=== PATIENT | female | born 1965 | race African-American/Black ===

== ENCOUNTER 2021-05-27 21:44 | Emergency (ER) | payer OTHER ==
[2021-05-27] MEDS ORDERED: NA CHLORIDE 0.9% 1,000 ML IV ONE (21:45)
[2021-05-27] MEDS ORDERED: EPINEPHrine 1 MG/10 ML SYR IV ONE (21:45)
[2021-05-27] MEDS ORDERED: ETOMIDATE 20 MG/10 ML VIAL IV ONE (21:45)
[2021-05-27] MEDS ORDERED: SUCCINYLCHOLINE 20 MG/ML (10 ML) IV ONE (21:45)
[2021-05-27] MEDS ORDERED: RSI MEDICATION KIT IV ONE (21:46)
[2021-05-27 22:12] LABS: Absolute Lymphocytes (CBC) 5.9 K/uL (0.7-4.9); Basophils % 0.3 % (0-1.3); Hematocrit 33.3 % (36.0-45.0); MPV 7.4 fL (7.6-11.3); RBC Red Blood Cell Count 3.76 M/uL (3.86-4.86)
[2021-05-27 22:16] LABS: Protime INR 1.15
[2021-05-27 22:32] LABS: Albumin 2.6 g/dL (3.4-5.0); Bilirubin Direct 0.1 mg/dL (0-0.2); Bilirubin Total 0.4 mg/dL (0.2-1.0); Potassium 4.7 mmol/L (3.5-5.1); Protein, Total 9.3 g/dL (6.4-8.2)
--- NOTE | 2021-05-27 22:48 | ER ---
Nurse's Notes [facility] Name: Hannah Diego Age: 55 yrs Sex: Female : 1965 Arrival Date: 05/27/2021 Time: 21:46 Bed 3 Private MD: Diagnosis: Severe respiratory distress. Sepsis. Cardiorespiratory arrest Presentation: 05/27 21:50 Chief complaint: Chief complaint: EMS states: Came from [facility]. They tw5 stated " She had been fine all day long according to [facility] but about an hour ago she started having respiratory issues, and it was called. 21:50 Method Of Arrival: EMS: [facility] tw5 21:50 Care prior to arrival: None. non rebreather. tw5 21:50 Acuity: HECTOR 1 tw5 22:00 Compressions began at 22:00. tw5 Historical: - Home Meds: 22:50 SEE ADMISSION RECORD [Active]; tw Screenin:50 Abuse screen: Unable to obtain. Nutritional screening: Unable to obtain . Tuberculosis tw5 screening: Unable to obtain. Assessment: 21:50 General: ambu bag. tw5 21:50 General: rapid response Dr. Gates at the bedside. Jaw Thrust, towel placed under patients tw5 shoulders. . General: 7.5 tube. Etomidate 10 mg . Cardiovascular:. 21:50 General: succ going in 100 mg . tw5 21:50 General: 37 o2, 83 heart 111/83, 20 resp. tw5 21:54 General: bougie used . tw5 21:58 General: 100 suc in. tw5 22:00 General: CPR began. tw5 22:00 General: aystole . tw5 22:00 CPR assessment: unresponsive, no respiratory effort, Ambu ventilation. Cardiac rhythm tw5 is bradycardia. 22:03 General: epi . tw5 22:04 General: pulse check. tw5 22:05 General: epi. tw5 22:06 General: bi carb. tw5 22:07 General: epi. tw5 22:08 General: pulse check. tw5 22:09 General: cpr resumed. tw5 22:09 General: epi. tw5 22:09 General: Efra Mckenna (CPR) , Akin SALAZAR tech, Norman KAUR Tech, Astrid RN, Hilaria RN, tw5 Adina RN (Primary Nurse), Dr. Kody MCCAULEY (Lead on CODE), Juan Vásquez RN Charge, [facility] (CPR). 22:11 General: epi. tw5 22:13 General: TIME OF 2212. tw5 22:13 Cardiac rhythm is asystole. kc4 22:34 General: [facility] called- Number [id number]. . tw5 22:34 General: [facility] called regarding eye donation- stated patient is not a tw5 candidate for donation. 05/28 01:22 General: [facility] at [facility] notified of pt condition. [facility] has been unsuccessful df1 contacting family since pt was transported to ER.. 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 Vital Signs: 05/27 21:50 BP 111 / 83; Pulse 83 MON; Resp 20 A; Temp 101.4(R); Pulse Ox 37% on 15% BVM; Weight tw5 129.27 kg (R); Height 5 ft. 6 in. (167.64 cm); 21:50 Body Mass Index 46.00 (129.27 kg, 167.64 cm) tw5 21:50 unable to obtain pain score tw5 ED Course: 21:46 Patient arrived in ED. cf2 21:50 Adina Khalil is Primary Nurse. tw5 21:50 Patient has correct armband on for positive identification. Placed in gown. tw5 21:54 Intubation: 7.5 Fr. ETT placed orally. Performed by Wolfgang Gates MD Successful on third tw5 attempt. Placement verified by CO2 detector w/ + color change. 21:54 Maintain EMS IV. Dressing intact. Good blood return noted. Site clean \\T\\ dry. Gauge \\T\\ tw 5 site: 20 RAC. 21:54 Inserted saline lock: 20 gauge in left antecubital area, using aseptic technique. tw5 22:17 Wolfgang Gates MD is Attending Physician. pkl 22:46 Wolfgang Gates MD is Pronouncing Provider. pkl 22:49 Triage completed. tw5 Administered Medications: 21:50 Drug: Succinylcholine 100 mg Route: IVP; Site: left antecubital; tw5 23:26 Follow up: Response: No change in condition tw5 21:50 Drug: Etomidate 10 mg Route: IVP; Site: left antecubital; tw5 23:12 Follow up: given prior to succinylcholine tw5 21:58 Drug: Succinylcholine 100 mg Route: IVP; Site: right antecubital; tw5 23:26 Follow up: Response: No change in condition tw5 22:03 Drug: EPINEPHrine 0.1mg/mL 1:10,000 1 mg Route: IVP; Site: right antecubital; tw5 23:26 Follow up: Response: No change in condition tw5 22:05 Drug: EPINEPHrine 0.1mg/mL 1:10,000 1 mg Route: IVP; Site: right antecubital; tw5 23:26 Follow up: Response: No change in condition tw5 22:06 Drug: Sodium Bicarbonate 1 amp Route: IVP; Site: right antecubital; tw5 23:25 Follow up: Response: No change in condition tw5 22:07 Drug: EPINEPHrine 0.1mg/mL 1:10,000 1 mg Route: IVP; Site: right antecubital; tw5 23:26 Follow up: Response: No change in condition 5 22:07 Drug: NS 0.9% 1000 ml Route: IV; Rate: 1 bolus; Site: right antecubital; tw5 23:25 Follow up: Response: No change in condition; IV Status: Order to discontinue infusion tw5 22:09 Drug: EPINEPHrine 0.1mg/mL 1:10,000 1 mg Route: IVP; Site: right antecubital; tw5 23:25 Follow up: Response: No change in condition tw5 22:11 Drug: EPINEPHrine 0.1mg/mL 1:10,000 1 mg Route: IVP; Site: right antecubital; tw5 23:25 Follow up: Response: No change in condition tw5 Intake: Outcome: 22:13 Outcome Patient tw5 22:13 Patient : Time of 22:13 Pronounced by Wolfgang Gates MD tw5 22:13 Condition: 05/28 01:52 Patient left the ED. tw5 Signatures: Wolfgang Gates MD MD pkl Munoz, Edgar, RN RN em MaurerGeovany kaur cf2 Hilaria Freeman kc4 Astrid Field df1 Adina Khalil tw5 Corrections: (The following items were deleted from the chart) 05/27 21:53 21:50 General: 7.5 tube. Etomidate 100 mg . tw 22:13 22:09 General: Efra Tech, Akin RT tech, Norman leaf stamper, Astrid RN, Hilaria RN, [facility] Adina HOWARD, Dr. Kody MCCAULEY, Juan Vásquez RN Charge. . 22:42 21:50 Chief complaint: 22:49 22:23 Compressions began at 22:00. kc4 23:08 21:58 Succinylcholine 100 mg IVP in left antecubital tw5 23:08 22:03 EPINEPHrine 0.1mg/mL 1:10,000 1 mg IVP in left antecubital tw5 23:08 21:58 Succinylcholine 100 mg IVP in right antecubital [facility]
--- NOTE | 2021-05-27 22:48 | EDPHYS ---
Physician Documentation [facility] Name: Hannah Diego Age: 55 yrs Sex: Female : 1965 Arrival Date: 05/27/2021 Time: 21:46 Bed 3 Private MD: ED Physician Wolfgang Gates HPI: 05/27 22:19 This 55 yrs old Black Female presents to ER via Unassigned with complaints of pkl Respiratory Distress. 22:19 The patient has shortness of breath at rest. Onset: The symptoms/episode began/occurred pkl just prior to arrival, Patient brought in by EMS from shelter in severe respiratory distress. O2 sat around 30% on non-re breather. Temp 101.4 ( rectally ). Historical: - Home Meds: 22:50 SEE ADMISSION RECORD [Active]; tw5 ROS: 22:37 Eyes: Negative for injury, pain, redness, and discharge, ENT: Negative for injury, pkl pain, and discharge, Neck: Negative for injury, pain, and swelling, Cardiovascular: Negative for chest pain, palpitations, and edema. 22:37 Respiratory: Positive for shortness of breath, at rest. 22:37 Abdomen/GI: Negative for abdominal pain, nausea, vomiting, and diarrhea. 22:37 Back: Negative for pain at rest. 22:37 : Negative for urinary symptoms. 22:37 MS/extremity: Negative for acute changes. 22:37 Skin: Negative for rash. 22:37 Neuro: Positive for altered mental status. Exam: 22:37 Eyes: Pupils equal round and reactive to light, extra-ocular motions intact. Lids and pkl lashes normal. Conjunctiva and sclera are non-icteric and not injected. Cornea within normal limits. Periorbital areas with no swelling, redness, or edema. 22:37 Head/face: Noted is swelling, that is severe, of the right temporal region noted. 22:37 ENT: 22:37 Neck: Previous tracheostomy incision noted. 22:37 Chest/axilla: Exam negative for acute changes. 22:37 Cardiovascular: Rate: normal, Rhythm: regular. 22:37 Respiratory: severe repiratory distress is noted, Respirations: labored breathing, Breath sounds: decreased breath sounds, that are severe. 22:37 Abdomen/GI: Bowel sounds: normal, Palpation: abdomen is soft and non-tender, in all quadrants. 22:37 Back: Exam negative for acute changes. 22:37 : Exam negative for acute changes. 22:37 Musculoskeletal/extremity: Exam is negative for acute changes. 22:37 Skin: Exam negative for rash. 22:37 Neuro: Mentation: responsive to voice able to follow commands, unable to follow commands, Cranial nerves: unable to test, the patient is comatose, Motor: unable to test, the patient is comatose. Vital Signs: 21:50 BP 111 / 83; Pulse 83 MON; Resp 20 A; Temp 101.4(R); Pulse Ox 37% on 15% BVM; Weight tw5 129.27 kg (R); Height 5 ft. 6 in. (167.64 cm); 21:50 Body Mass Index 46.00 (129.27 kg, 167.64 cm) tw5 21:50 unable to obtain pain score tw5 Procedures: 22:37 CPR: See CPR flow sheet. Initial patient assessment: no respiratory effort. pkl MDM: 22:18 Patient medically screened. pkl 22:37 Data reviewed: vital signs, nurses notes. pkl 11 22:08 Order name: Lactate; Complete Time: 22:48 EDMS 1106 22:08 Order name: Procalcitonin; Complete Time: 00:37 EDMS 1106 22:08 Order name: Basic Metabolic Panel; Complete Time: 22:48 EDMS 1106 22:08 Order name: Liver (Hepatic) Function; Complete Time: 22:48 EDMS 1106 22:08 Order name: CBC with Automated Diff; Complete Time: 00:37 EDMS 1106 22:08 Order name: Protime (+INR); Complete Time: 22:48 EDMS 1106 22:21 Order name: Manual Differential; Complete Time: 00:37 EDMS Administered Medications: 21:50 Drug: Succinylcholine 100 mg Route: IVP; Site: left antecubital; tw5 23:26 Follow up: Response: No change in condition tw5 21:50 Drug: Etomidate 10 mg Route: IVP; Site: left antecubital; tw5 23:12 Follow up: given prior to succinylcholine tw5 21:58 Drug: Succinylcholine 100 mg Route: IVP; Site: right antecubital; tw5 23:26 Follow up: Response: No change in condition tw5 22:03 Drug: EPINEPHrine 0.1mg/mL 1:10,000 1 mg Route: IVP; Site: right antecubital; 5 23:26 Follow up: Response: No change in condition tw5 22:05 Drug: EPINEPHrine 0.1mg/mL 1:10,000 1 mg Route: IVP; Site: right antecubital; 5 23:26 Follow up: Response: No change in condition tw5 22:06 Drug: Sodium Bicarbonate 1 amp Route: IVP; Site: right antecubital; tw5 23:25 Follow up: Response: No change in condition 5 22:07 Drug: EPINEPHrine 0.1mg/mL 1:10,000 1 mg Route: IVP; Site: right antecubital; 5 23:26 Follow up: Response: No change in condition 5 22:07 Drug: NS 0.9% 1000 ml Route: IV; Rate: 1 bolus; Site: right antecubital; 23:25 Follow up: Response: No change in condition; IV Status: Order to discontinue infusion 5 22:09 Drug: EPINEPHrine 0.1mg/mL 1:10,000 1 mg Route: IVP; Site: right antecubital; tw5 23:25 Follow up: Response: No change in condition tw5 22:11 Drug: EPINEPHrine 0.1mg/mL 1:10,000 1 mg Route: IVP; Site: right antecubital; 5 23:25 Follow up: Response: No change in condition Disposition: 22:37 . pkl Disposition Summary: 05/27/21 22:48 Patient Location: [facility] pkl Pronouncing Physician: Wolfgang Gates pkliborio Time of : 22:13 05/27/2021 pkl Diagnosis - Severe respiratory distress. Sepsis. Cardiorespiratory arrest pkl Signatures: Dispatcher [employer] EDWolfgang Ayoub MD MD pkl Adina Khalil
[2021-05-27 23:04] LABS: Blood Morphology Comment NOTED (NOT SEEN); Platelet Estimate ADEQ
[2021-05-27 23:05] LABS: Hypochromasia 1+; Polychromasia 1+
[2021-05-27 23:06] LABS: Ovalocytes 1+
[2021-05-28 01:22] VITALS: BP 111/83; TEMP 101.4; O2SAT 37
--- OUTSIDE RECORDS SUMMARY | 2021-06-03 14:49 | XMS REPORT | Continuity of Care Document ---
:1965 Author Organization [facility] t Address [address] [place] [address] Care Team Providers Name Role Phone Pcp, Patient Does Not Have A Primary Care Physician [phone] Doctor Unassigned, Name Attending Clinician Unavailable Fauzia Osorio Attending Clinician Unavailable Stone Petty Attending Clinician Stone NOLEN Attending Clinician Unavailable Referred Admitting Clinician Unavailable Fauzia Osorio Admitting Clinician Unavailable Physician, Primary or Family Admitting Clinician Unavailabl e Payers Payer Name Policy Type Policy Number Effective Date Expiration Date S ource Problems Condition Condition Condition Status Onset Resolution Last Treating Co mments Source Name Details Category Date Date Treatment Clinician Date Morbid Morbid Disease Active 2015-07 [facility] obesity obesity 1-22 [place] mass index 00 Me dical of 50 or of 50 or [place] higher higher Morbid Morbid Disease Active 2015-07 [facility] obesity obesity 1-22 [place] mass index 00 Me dical of of [place] 40.0-49.9 40.0-49.9 Allergies, Adverse Reactions, Alerts Allergy Allergy Status Severity Reaction(s) Onset Inactive Treating Comm ents Source Name Type Date Date Clinician No Known DA Active U 2020-07 [facility] No Known DA Active U 2020-1 [facility] All[facility]ie 0-08 [place] 00:[facility]: d 00 [facility] No Known DA Active U 2020-0 [facility] Allergie 9-20 Clear s 00:00: Amin 00 [facility] No Known DA Active U 2020- [facility] Allergie 9-20 Clear s 00:00: Amin 00 [facility] NO KNOWN Drug Active Univers ALLERGIE Class ity of S [facility] Social History Social Habit Start Date Stop Date Quantity Comments Source Exposure to Not sure [facility] SARS-CoV-2 (event) [facility] Sex Assigned At [birth year] [facility] 00:00:00 00:00:00 [facility] Smoking Status Start Date Stop Date Source Unknown if ever smoked [facility] Medications Ordered Filled Start Stop Current Ordering Indication Dosage Frequency Signature Comments Components Source Medication Medication Date Date Medication? Clinician (SIG) Name Name lidocaine 2020- No 10mL 10 mL, Unive rs 2% 04-01 Infiltrati ity of (XYLOCAINE) 00:15: 00:15 on, ONCE, [place] 20 mg/mL (2 00 :00 1 dose, Medic al %) Fri [place] injection 03/31/21 at 10 mL 1914, RAFFY oxymetazoli 2020- No 1{spray 1 [place], Univers ne 04-01 } Nasal, ity of (OXYMETAZOL 00:15[place] 00 :00 dose, Fri Medica l 0.05 % 03/31/21 at Branch nasal spray 1914, RAFFY [address] [place] lidocaine 2020- No 10mL 10 mL, Unive rs 2% 04-01 Infiltrati ity of (XYLOCAINE) 00:15: 00:15 on, ONCE, [place] 20 mg/mL (2 00 :00 1 dose, Medic al %) Fri [place] injection 03/31/21 at 10 mL 1914, RAFFY oxymetazoli 2020- No 1{spray 1 [place], Univers ne 04-01 } Nasal, ity of (OXYMETAZOL 00:15: 00:15 [place] 00 :00 dose, Fri Medica l 0.05 % 03/31/21 at Branch nasal spray 1915, RAFFY [address] [place] acetaminoph 2016- Yes 1{tbl} Take 1 [place] en-codeine 8-19 tablet by ity of (TYLENOL-CO 00:00: mouth [place] DEINE #3) 00 every 6 Medical 300-30 mg (six) [place] tablet hours as needed for Pain (scale 4-6) (for cough). acetaminoph Yes 1{tbl} Take 1 [place] en-codeine 8-19 tablet by ity of (TYLENOL-CO 00:00: mouth [place] DEINE #3) 00 every 6 Medical 300-30 mg (six) [place] tablet hours as needed for Pain (scale 4-6) (for cough). acetaminoph Yes 1{tbl} Take 1 [place] en-codeine 8-19 tablet by ity of (TYLENOL-CO 00:00: mouth [place] DEINE #3) 00 every 6 Medical 300-30 mg (six) Branch tablet hours as needed for Pain (scale 4-6) (for cough). Vital Signs Vital Name Observation Time Observation Value Comments Source Systolic blood 2021-04-01 04:00:00 168 mm[Hg] Univer sity pressure [facility] Diastolic blood 2021-04-01 04:00:00 84 mm[Hg] Unive [facility] Heart rate 2021-04-01 04:00:00 95 /min [facility] Respiratory rate 2021-04-01 04:00:00 18 /min [facility] Oxygen saturation in 2021-04-01 04:00:00 94 /min [facility] Arterial blood by [facility] Pulse oximetry [place] Body temperature 2021-04-01 00:30:00 36.67 Damari [facility] Body weight 2021-03-31 21:06:00 81.647 kg [facility] BMI 2021-03-31 21:06:00 29.05 kg/m2 [facility] Procedures Procedure Date / Time Performed Performing Clinician Sourc e EXTERNAL PROVIDER 2021-05-05 05:01:00 Doctor Unassigned, No Univ [facility] RECORDS Name [facility] [id number] 2021-04-28 00:00:00 PRIJO [facility] CT SOFT TISSUE NECK 2021-04-01 00:32:59 Gayle Nolen [facility] WO CONTRAST [facility] CT HEAD WO CONTRAST 2021-04-01 00:32:40 Gayle Nolen [facility] Encounters Start End Encounter Admission Attending Care Care Encounter Source Date/Time Date/Time Type Type Clinicians Facility Department ID 2021-04-25 Inpatient [facility] JOHN [id number] [facility] 18:31:00 [id number] [facility] 2021-04-10 Inpatient [facility]N JOHN [id number] [facility] 09:55:00 [id number] [facility] 2021-05-05 2021-05-05 Orders Doctor DAMASO [id number] Univers 00:00:00 00:00:00 Only Unassigned, [place] 350.1.13.[address] [place] [facility] [id number] Michael as [phone] [address] 2021-04-25 2021-05-03 Inpatient EM Jo, [facility] [id number] [facility] 21:47:00 18:53:00 Kendra 89 [facility] 2021-04-25 2021-04-25 Outpatient Osorio, HCACL LABO [id number] [facility] 23:59:00 23:59:00 Kendra 27 [facility] 2021-04-25 2021-04-25 Outpatient Osorio, [facility] LABO [id number] [facility] 23:59:00 23:59:00 Kendra [id number] [facility] 2021-04-10 2021-04-17 Inpatient EM Jo, [facility] [id number] [facility] 12:49:00 18:51:00 Kendra 81 [facility] 2021-04-11 2021-04-11 Outpatient Osorio, HC[facility]L LABO [id number] [facility] 10:47:00 10:47:00 Kendra [id number] [facility] 2021-03-31 2021-03-31 Emergency RAUL Nolen [id number] [facility] 16:08:00 23:57:00 Gayle [facility] 350.1.13.10 Esau [id number] [facility] [phone] [address] ([facility]) 2021-03-31 2021-03-31 Emergency X RAUL NOLEN ERT [id number] Univers 16:08:00 16:08:00 AZARANNA chandra [facility] Results Test Description Test Time Test Comments Results Result Comments Source COVID 19 Asymptomatic IH AG 2021-05-03 15:14:00 Test Item Value Reference Range Interpretation Comme nts COVID 19 Asymptomatic IH AG NEGATIVE NEGATIVE Negative results should be treated (test code = COVNONPUIAG) as presumptive and ifinconsistent with clinical s igns and symptoms, or necessaryfor pa tient management, should be teste d with an alternativemole cular assay. Negative results do not preclude RQCB-FhJ-8ybeut tion and should not be used as the sole basis forpatient management deci sions. Negative results should beconsidered in the context of a pa tient's recent exposures,histo ry, presence of clinical signs and symptoms consistentwith COVID-19. [id number] 11:19:00 Test Item Value Reference Range Interpretation Comments GLUBED (test code = GLUBED) 105 mg/dL 70-110 N [id number] 07:44:00 Test Item Value Reference Range Interpretation Comments GLUBED (test code = GLUBED) 107 mg/dL 70-110 N [id number] 00:55:00 Test Item Value Reference Range Interpretation Comments GLUBED (test code = GLUBED) 98 mg/dL 70-110 N [id number] 18:29:00 Test Item Value Reference Range Interpretation Comments GLUBED (test code = GLUBED) 65 mg/dL 70-110 L - XR CHEST 1 [id number] 06:58:00 [facility] : 1965 Sex: F FAX: Kendra Osorio MD [phone] [place]: St: ADM FAX: Zen Baldwin MD [phone] Name: ELENA DIEGO [facility] [place] : 1965 Age/S: 55/F [address] [facility] Unit #: [id number] Loc: [address] Phys: [place] [id number] Acct: [id number] Dis Date: Status: ADM IN PHONE #: [phone] Exam Date: 05/02/2021 0652 FAX #: [phone] Reason: Followup. Self-dislodged trach tube. EXAMS: CPT CODE: [id number] XR CHEST 1 V [id number] EXAM:- XR CHEST 1 V Location code:C3 HISTORY: Followup. Self-dislodged trach tube. COMPARISON: 04/25/2021 FINDINGS: Single AP view of thechest is provided. Tracheostomy cannula has been removed. Heart size and vascularity arewithin normal limits. Basilar opacities have diminished. There is no effusion or pneumothorax. IMPRESSION: 1. Basilar opacities have diminished. E lectronically Signed by Jagdish Salinas on 05/02/2021 at 0658 Reported and signed by: Miguel A Salinas M.D. CC: Kendra Osorio MD; Zen Hall MD Technologist: MAURO TAYLOR [facility] Date/Time/By: 05/02/2021 (0658) : By: [email or web address] PAGE 1 Signed Report FAX: Kendra Osorio MD [place]: St: ADM FAX: Y Zen Hall MD [phone] Name: ELENA DIEGO [facility] : 1965 Age/S: 55/F [address] [facility] [place] Unit #: [id number] Loc: [address] [place]: [place] [id number] Acct: [id number] Dis Date: atus: ADM IN PHONE #: [phone] Exam Date: FAX #: [phone] Reason: Followup. Self-dislodged trach tube. EXAMS: CPT CODE: [id number] XR CHEST 1 V [id number] <Continued> Orig Print D/T: S: 05/02/2021 (0701) PAGE 2 Signed [id number] 05:59:00 Test Item Value Reference Range Interpretation Comments GLUBED (test code = GLUBED) 114 mg/dL 70-110 H [id number] 01:14:00 Test Item Value Reference Range Interpretation Comments GLUBED (test code = GLUBED) 101 mg/dL 70-110 N [id number] 20:20:00 Test Item Value Reference Range Interpretation Comments GLUBED (test code = GLUBED) 103 mg/dL 70-110 N [id number] 16:19:00 Test Item Value Reference Range Interpretation Comments GLUBED (test code = GLUBED) 105 mg/dL 70-110 N [id number] 11:57:00 Test Item Value Reference Range Interpretation Comments GLUBED (test code = GLUBED) 115 mg/dL 70-110 H CBC W/AUTO [id number] 09:11:00 Test Item Value Reference Range Interpretation Comments WHITE BLOOD CELL (test code = 5.5 K/mm3 4.5-11.0 N WBC) RED BLOOD CELL (test code = 3.36 M/mm3 3.80-5.20 L RBC) HEMOGLOBIN (test code = HGB) 9.8 gm/dL 12.0-16.0 L HEMATOCRIT (test code = HCT) 31.3 % 36.0-48.0 L MEAN CELL VOLUME (test code = 93.2 UM3 82.0-99.0 N MCV) MEAN CELL HGB (test code = MCH) 29.2 UUG 25.5-32.5 N MEAN CELL HGB CONCETRATION 31.3 gm/dL 29.0-35.5 N (test code = MCHC) RED CELL DISTRIBUTION WIDTH 13.0 % 11.5-15.0 N (test code = RDW) RED CELL DISTRIBUTION WIDTH SD 44.2 fL 34.8-50.2 N (test code = RDW-SD) PLATELET COUNT (test code = 200 K/mm3 150-400 N PLT) MEAN PLATELET VOLUME (test code 9.1 fl 7.4-10.4 N = MPV) NEUTROPHIL % (test code = NT%) 42.1 % 49.0-76.0 L IMMATURE GRANULOCYTE % (test 0.7 % 0.0-0.4 H code = IG%) LYMPHOCYTE % (test code = LY%) 42.8 % 23.0-38.0 H MONOCYTE % (test code = MO%) 10.8 % 1.0-10.0 H EOSINOPHIL % (test code = EO%) 3.2 % 1.0-5.0 N BASOPHIL % (test code = BA%) 0.4 % 0.0-1.0 N NUCLEATED RBC % (test code = 0.0 % 0.0-0.1 N NRBC%) NEUTROPHIL # (test code = NT#) 2.3 K/mm3 2.4-6.3 L IMMATURE GRANULOCYTE # (test 0.04 x10 3/uL 0.00-0.07 N code = IG#) LYMPHOCYTE # (test code = LY#) 2.4 K/mm3 1.2-4.0 N MONOCYTE # (test code = MO#) 0.6 K/mm3 0.0-0.6 N EOSINOPHIL # (test code = EO#) 0.2 K/MM3 0.0-0.7 N BASOPHIL # (test code = BA#) 0.0 K/mm3 0.0-0.2 N NUCLEATED RBC # (test code = 0.00 X10 3uL 0.00-0.01 N NRBC#) BASIC METABOLIC [id number] 08:20:00 Test Item Value Reference Range Interpretation Comments SODIUM (test code = NA) 140 mmol/l 134.0-147.0 N POTASSIUM (test code = K) 3.9 mmol/L 3.6-5.2 N CHLORIDE (test code = CL) 105 mmol/l 98.0-107.0 N CARBON DIOXIDE (test code = CO2) 27.7 mmol/l 21.0-33.0 N ANION GAP (test code = GAP) 11.2 0-20 N GLUCOSE (test code = GLU) 114 mg/dl 70.0-110.0 H BLOOD UREA NITROGEN (test code = 20 mg/dl 7.0-18.0 H BUN) CREATININE (test code = CREAT) 1.55 mg/dL 0.60-1.30 H GFR NON BLACK (test code = 37 mL/min 90-95 L GFRNONBLACK) GFR BLACK (test code = GFRBLACK) 44 mL/min 109-115 L CALCIUM (test code = CA) 9.3 mg/dl 8.0-10.5 N [id number] 06:15:00 Test Item Value Reference Range Interpretation Comments GLUBED (test code = GLUBED) 100 mg/dL 70-110 N [id number] 03:14:00 Test Item Value Reference Range Interpretation Comments GLUBED (test code = GLUBED) 85 mg/dL 70-110 N [id number] 23:18:00 Test Item Value Reference Range Interpretation Comments GLUBED (test code = GLUBED) 98 mg/dL 70-110 N [id number] 20:51:00 Test Item Value Reference Range Interpretation Comments GLUBED (test code = GLUBED) 99 mg/dL 70-110 N [id number] 16:27:00 Test Item Value Reference Range Interpretation Comments GLUBED (test code = GLUBED) 109 mg/dL 70-110 N [id number] 12:29:00 Test Item Value Reference Range Interpretation Comments GLUBED (test code = GLUBED) 102 mg/dL 70-110 N [id number] 05:33:00 Test Item Value Reference Range Interpretation Comments GLUBED (test code = GLUBED) 96 mg/dL 70-110 N [id number] 00:15:00 Test Item Value Reference Range Interpretation Comments GLUBED (test code = GLUBED) 80 mg/dL 70-110 N [id number] 18:15:00 Test Item Value Reference Range Interpretation Comments GLUBED (test code = GLUBED) 77 mg/dL 70-110 N [id number] 11:53:00 Test Item Value Reference Range Interpretation Comments GLUBED (test code = GLUBED) 100 mg/dL 70-110 N [id number] 05:36:00 Test Item Value Reference Range Interpretation Comments GLUBED (test code = GLUBED) 96 mg/dL 70-110 N [id number] 20:10:00 Test Item Value Reference Range Interpretation Comments GLUBED (test code = GLUBED) 81 mg/dL 70-110 N [id number] 17:55:00 Test Item Value Reference Range Interpretation Comments GLUBED (test code = GLUBED) 78 mg/dL 70-110 N [id number] 12:23:00 Test Item Value Reference Range Interpretation Comments GLUBED (test code = GLUBED) 103 mg/dL 70-110 N [id number] 08:22:00 Test Item Value Reference Range Interpretation Comments GLUBED (test code = GLUBED) 107 mg/dL 70-110 N [id number] 05:50:00 Test Item Value Reference Range Interpretation Comments GLUBED (test code = GLUBED) 110 mg/dL 70-110 N [id number] 00:52:00 Test Item Value Reference Range Interpretation Comments GLUBED (test code = GLUBED) 108 mg/dL 70-110 N [id number] 19:42:00 Test Item Value Reference Range Interpretation Comments GLUBED (test code = GLUBED) 128 mg/dL 70-110 H [id number] 17:09:00 Test Item Value Reference Range Interpretation Comments GLUBED (test code = GLUBED) 151 mg/dL 70-110 H [id number] 12:24:00 Test Item Value Reference Range Interpretation Comments GLUBED (test code = GLUBED) 157 mg/dL 70-110 H CBC W/AUTO [id number] 10:26:00 Test Item Value Reference Range Interpretation Comments WHITE BLOOD CELL (test code = 7.7 K/mm3 4.5-11.0 N WBC) RED BLOOD CELL (test code = 3.35 M/mm3 3.80-5.20 L RBC) HEMOGLOBIN (test code = HGB) 9.7 gm/dL 12.0-16.0 L HEMATOCRIT (test code = HCT) 30.5 % 36.0-48.0 L MEAN CELL VOLUME (test code = 91.0 UM3 82.0-99.0 MCV) MEAN CELL HGB (test code = MCH) 29.0 UUG 25.5-32.5 N MEAN CELL HGB CONCETRATION 31.8 gm/dL 29.0-35.5 N (test code = MCHC) RED CELL DISTRIBUTION WIDTH 13.0 % 11.5-15.0 N (test code = RDW) RED CELL DISTRIBUTION WIDTH SD 42.8 fL 34.8-50.2 N (test code = RDW-SD) PLATELET COUNT (test code = 188 K/mm3 150-400 N PLT) MEAN PLATELET VOLUME (test code 9.4 fl 7.4-10.4 N = MPV) NEUTROPHIL % (test code = NT%) 53.6 % 49.0-76.0 N IMMATURE GRANULOCYTE % (test 0.4 % 0.0-0.4 N code = IG%) LYMPHOCYTE % (test code = LY%) 33.1 % 23.0-38.0 N MONOCYTE % (test code = MO%) 11.0 % 1.0-10.0 H EOSINOPHIL % (test code = EO%) 1.6 % 1.0-5.0 N BASOPHIL % (test code = BA%) 0.3 % 0.0-1.0 N NUCLEATED RBC % (test code = 0.0 % 0.0-0.1 N NRBC%) NEUTROPHIL # (test code = NT#) 4.1 K/mm3 2.4-6.3 N IMMATURE GRANULOCYTE # (test 0.03 x10 3/uL 0.00-0.07 N code = IG#) LYMPHOCYTE # (test code = LY#) 2.5 K/mm3 1.2-4.0 N MONOCYTE # (test code = MO#) 0.8 K/mm3 0.0-0.6 H EOSINOPHIL # (test code = EO#) 0.1 K/MM3 0.0-0.7 N BASOPHIL # (test code = BA#) 0.0 K/mm3 0.0-0.2 N NUCLEATED RBC # (test code = 0.00 X10 3uL 0.00-0.01 N NRBC#) BASIC METABOLIC [id number] 08:29:00 Test Item Value Reference Range Interpretation Comments SODIUM (test code = NA) 139 mmol/l 134.0-147.0 N POTASSIUM (test code = K) 3.7 mmol/L 3.6-5.2 N CHLORIDE (test code = CL) 101 mmol/l 98.0-107.0 N CARBON DIOXIDE (test code = CO2) 30.9 mmol/l 21.0-33.0 N ANION GAP (test code = GAP) 10.8 0-20 N GLUCOSE (test code = GLU) 169 mg/dl 70.0-110.0 H BLOOD UREA NITROGEN (test code = 40 mg/dl 7.0-18.0 H BUN) CREATININE (test code = CREAT) 2.36 mg/dL 0.60-1.30 H GFR NON BLACK (test code = 22 mL/min 90-95 L GFRNONBLACK) GFR BLACK (test code = GFRBLACK) 27 mL/min 109-115 L CALCIUM (test code = CA) 9.9 mg/dl 8.0-10.5 N [id number] 06:52:00 Test Item Value Reference Range Interpretation Comments GLUBED (test code = GLUBED) 154 mg/dL 70-110 H [id number] 00:56:00 Test Item Value Reference Range Interpretation Comments GLUBED (test code = GLUBED) 129 mg/dL 70-110 H [id number] 21:39:00 Test Item Value Reference Range Interpretation Comments GLUBED (test code = GLUBED) 130 mg/dL 70-110 H [id number] 16:32:00 Test Item Value Reference Range Interpretation Comments GLUBED (test code = GLUBED) 174 mg/dL 70-110 H [id number] 12:36:00 Test Item Value Reference Range Interpretation Comments GLUBED (test code = GLUBED) 225 mg/dL 70-110 H [id number] 06:08:00 Test Item Value Reference Range Interpretation Comments GLUBED (test code = GLUBED) 177 mg/dL 70-110 H [id number] 00:39:00 Test Item Value Reference Range Interpretation Comments GLUBED (test code = GLUBED) 241 mg/dL 70-110 H UA RFLX MICR CULT IF [id number] 21:47:00 Test Item Value Reference Range Interpretation Comments UA GLUCOSE DIPSTICK NORMAL mg/dl NORMAL (test code = DGLUU) UA BILIRUBIN DIPSTICK NEGATIVE mg/dL NEGATIVE (test code = BILU) UA KETONE DIPSTICK NEGATIVE mg/dl NEGATIVE (test code = KETU) UA SPECIFIC GRAVITY 1.015 1.000-1.030 (test code = SGU) UA BLOOD DIPSTICK 50 Won/micL NEGATIVE A (test code = SERGEI) Won/micL UA PH DIPSTICK (test 7.0 5.0-9.0 code = SHAWANDA) UA PROTEIN DIPSTICK 100 mg/dl NEGATIVE A (test code = PROU) UA UROBILINIOGEN NORMAL mg/dl NORMAL DIPSTICK (test code = URO) UA NITRITE DIPSTICK NEGATIVE NEGATIVE (test code = TARYN) UA LEUKOCYTE ESTERASE 500 David/micL NEGATIVE A DIPSTICK (test code = David/micL LEUU) UA WBC (test code = >100 WBC/HPF NONE A WBCU) UA CULTURE NEEDED? YES,WBC>10 & Culture Chk Criteria met, (test code = UACULT) EPI<=15 Criteria Uri ne Culture in-process. UA SQUAMOUS CELLS 5-10 #/hpf (test code = SQU) Indication for culture: RiskForSepsis-no oth srcSpecimen Description: CLEAN CATCHBASIC METABOLIC [id number] 19:47:00 Test Item Value Reference Range Interpretation Comments SODIUM (test code = NA) 134 mmol/l 134.0-147.0 N POTASSIUM (test code = K) 4.5 mmol/L 3.6-5.2 N CHLORIDE (test code = CL) 96 mmol/l 98.0-107.0 L CARBON DIOXIDE (test code = CO2) 30.9 mmol/l 21.0-33.0 N ANION GAP (test code = GAP) 11.6 0-20 N GLUCOSE (test code = GLU) 211 mg/dl 70.0-110.0 H BLOOD UREA NITROGEN (test code = 44 mg/dl 7.0-18.0 H BUN) CREATININE (test code = CREAT) 2.33 mg/dL 0.60-1.30 H GFR NON BLACK (test code = 23 mL/min 90-95 L GFRNONBLACK) GFR BLACK (test code = GFRBLACK) 28 mL/min 109-115 L CALCIUM (test code = CA) 10.7 mg/dl 8.0-10.5 H HEPATIC FUNCTION PANEL [id number] 19:47:00 Test Item Value Reference Range Interpretation Comments TOTAL PROTEIN (test code = PROT) 8.2 GM/DL 6.0-8.1 H ALBUMIN (test code = ALB) 2.8 gm/dL 3.2-4.7 L BILIRUBIN TOTAL (test code = BILT) 0.2 mg/dl 0.0-1.0 N BILIRUBIN DIRECT (test code = 0.1 mg/dl 0.0-0.3 N BILD) SGOT/AST (test code = AST) 19 Units/L 15-37 N SGPT/ALT (test code = ALT) 27 Units/L 12.0-78.0 N ALKALINE PHOSPHATASE TOTAL (test 64 Units/L 50.0-136.0 N code = ALKP) B-TYPE NATRIURETIC [id number] 19:47:00 Test Item Value Reference Range Interpretation Comments B-TYPE NATRIURETIC PEPTIDE (test 111 PG/ML 5-100 H code = BNP) [id number] 19:47:00 Test Item Value Reference Range Interpretation Comments TROPONIN-I (test <0.02 NG/ML 0.00-0.06 N REFERENCE R MARCO code = TROPI) TROPONIN I HEA LTHY INDIVIDUALS: < 0.06 ng/mL R/O ISCHE ALLISON: 0.07 - 0.60 ng/ mL CUT-OFF RANGE F OR AMI: 0.60 - 1.5 ng/m L LACTIC [id number] 19:46:00 Test Item Value Reference Range Interpretation Comments LACTIC ACID (test code = LACT) 0.3 MMOL/L 0.4-2.0 L COVID 19 INHOUSE [id number] 19:34:00 Test Item Value Reference Range Interpretation Comments COVID 19 INHOUSE NEGATIVE NEGATIVE Negative re sults should be AG (test code = treated as p resumptive and [id number]) ifinconsistent with clinical signs and sympt oms, or necessaryfor pa tient management, cristian uld be tested with an alterna tivemolecular assay. Negative results do not preclude [id number]-[id number] tion and should not be u sed as the sole basis forp atient management deci sions. Negative result s should beconsidered in the context of a patient's recent exposures,histo ry, presence of clinical sig ns and symptoms consis tentwith COVID-19. CBC W/AUTO [id number] 19:18:00 Test Item Value Reference Range Interpretation Comments WHITE BLOOD CELL (test code = 8.8 K/mm3 4.5-11.0 N WBC) RED BLOOD CELL (test code = 3.72 M/mm3 3.80-5.20 L RBC) HEMOGLOBIN (test code = HGB) 10.9 gm/dL 12.0-16.0 L HEMATOCRIT (test code = HCT) 32.5 % 36.0-48.0 L MEAN CELL VOLUME (test code = 87.4 UM3 82.0-99.0 MCV) MEAN CELL HGB (test code = MCH) 29.3 UUG 25.5-32.5 N MEAN CELL HGB CONCETRATION 33.5 gm/dL 29.0-35.5 N (test code = MCHC) RED CELL DISTRIBUTION WIDTH 13.1 % 11.5-15.0 N (test code = RDW) RED CELL DISTRIBUTION WIDTH SD 41.1 fL 34.8-50.2 N (test code = RDW-SD) PLATELET COUNT (test code = 235 K/mm3 150-400 N PLT) MEAN PLATELET VOLUME (test code 10.0 fl 7.4-10.4 N = MPV) NEUTROPHIL % (test code = NT%) 52.6 % 49.0-76.0 N IMMATURE GRANULOCYTE % (test 0.3 % 0.0-0.4 N code = IG%) LYMPHOCYTE % (test code = LY%) 33.3 % 23.0-38.0 N MONOCYTE % (test code = MO%) 11.8 % 1.0-10.0 H EOSINOPHIL % (test code = EO%) 1.8 % 1.0-5.0 N BASOPHIL % (test code = BA%) 0.2 % 0.0-1.0 N NUCLEATED RBC % (test code = 0.0 % 0.0-0.1 N NRBC%) NEUTROPHIL # (test code = NT#) 4.6 K/mm3 2.4-6.3 N IMMATURE GRANULOCYTE # (test 0.03 x10 3/uL 0.00-0.07 N code = IG#) LYMPHOCYTE # (test code = LY#) 2.9 K/mm3 1.2-4.0 N MONOCYTE # (test code = MO#) 1.0 K/mm3 0.0-0.6 H EOSINOPHIL # (test code = EO#) 0.2 K/MM3 0.0-0.7 N BASOPHIL # (test code = BA#) 0.0 K/mm3 0.0-0.2 N NUCLEATED RBC # (test code = 0.00 X10 3uL 0.00-0.01 N NRBC#) - CHEST 1 [id number] 18:52:00 [facility] : 1965 Sex: F FAX: Nichole Diego MD [phone] [place]: St: PRE Name: ELENA DIEGO [facility] : 1965 Age/S: 55/F [address] Unit #: [id number] Loc: [address] Phys: [place] [id number] Acct: [id number] Dis Date: Status:PRE ER PHONE #: [phone] Exam Date: 04/25/2021 185 FAX #: [phone] Reason: Code SEPSIS EXAMS: CPT CODE: [id number] XR CHEST 1 V [id number] EXAM: - XR CHEST 1 V INDICATION: Code SEPSIS. Malfunctioning tracheostomy. T18 TECHNIQUE: Frontal view of the chest. FINDINGS: Small amount of bibasilar opacities. Tracheostomy tube tipprojects 5.8 cm above the collin. Cardiomediastinal silhouette and osseous structures appear unremarkable. No pleural effusion appreciated. IMPRESSION: Small amountof bibasilar opacities, either atelectasis or pneumonia. Tracheostomy tube tip projects 5.8 cm above the collin. at 1852 Reported and signed by: Nigel Bianchi M.D. CC: Nichole Kelsey Technologist: SAMUEL CARBALLO Trnokrd Date/Time/By: 04/25/2021 (1851) : By: [email or web address] PAGE 1 Signed Report FAX: Nichole Diego MD [phone] [place]: St: PRE-- Name: ELENA DIEGO [facility] : 1965 Age/S: 55/F [address] Unit #: [id number] Loc: E.ERS2 [place], [place]: [place] [id number] Acct: [id number] Dis Date: Status: PRE ER PHONE #: [phone] Exam Date: 04/25/20211849 FAX #: [phone] Reason: Code SEPSIS EXAMS: CPT CODE: [id number] XR CHEST 1 V 04262 <Continued> Orig Print D/T: S: 04/25/2021 (1854) PAGE 2 Signed ReportBASIC METABOLIC [id number] 12:19:00 Test Item Value Reference Range Interpretation Comments SODIUM (test code = NA) 136 mmol/l 134.0-147.0 N POTASSIUM (test code = K) 4.4 mmol/L 3.6-5.2 N CHLORIDE (test code = CL) 101 mmol/l 98.0-107.0 N CARBON DIOXIDE (test code = CO2) 27.6 mmol/l 21.0-33.0 N ANION GAP (test code = GAP) 11.8 0-20 N GLUCOSE (test code = GLU) 130 mg/dl 70.0-110.0 H BLOOD UREA NITROGEN (test code = 40 mg/dl 7.0-18.0 H BUN) CREATININE (test code = CREAT) 1.88 mg/dL 0.60-1.30 H GFR NON BLACK (test code = 29 mL/min 90-95 L GFRNONBLACK) GFR BLACK (test code = GFRBLACK) 35 mL/min 109-115 L CALCIUM (test code = CA) 9.7 mg/dl 8.0-10.5 N [id number] 12:19:00 Test Item Value Reference Range Interpretation Comments MAGNESIUM (test code = MAG) 2.5 mg/dl 1.8-2.4 H CBC W/AUTO [id number] 11:53:00 Test Item Value Reference Range Interpretation Comments WHITE BLOOD CELL (test code = 6.2 K/mm3 4.5-11.0 N WBC) RED BLOOD CELL (test code = 3.24 M/mm3 3.80-5.20 L RBC) HEMOGLOBIN (test code = HGB) 9.4 gm/dL 12.0-16.0 L HEMATOCRIT (test code = HCT) 29.6 % 36.0-48.0 L MEAN CELL VOLUME (test code = 91.4 UM3 82.0-99.0 N MCV) MEAN CELL HGB (test code = MCH) 29.0 UUG 25.5-32.5 N MEAN CELL HGB CONCETRATION 31.8 gm/dL 29.0-35.5 N (test code = MCHC) RED CELL DISTRIBUTION WIDTH 13.2 % 11.5-15.0 N (test code = RDW) RED CELL DISTRIBUTION WIDTH SD 43.4 fL 34.8-50.2 N (test code = RDW-SD) PLATELET COUNT (test code = 134 K/mm3 150-400 L PLT) MEAN PLATELET VOLUME (test code 10.1 fl 7.4-10.4 N = MPV) NEUTROPHIL % (test code = NT%) 46.5 % 49.0-76.0 L IMMATURE GRANULOCYTE % (test 0.5 % 0.0-0.4 H code = IG%) LYMPHOCYTE % (test code = LY%) 36.6 % 23.0-38.0 N MONOCYTE % (test code = MO%) 13.9 % 1.0-10.0 H EOSINOPHIL % (test code = EO%) 2.3 % 1.0-5.0 N BASOPHIL % (test code = BA%) 0.2 % 0.0-1.0 N NUCLEATED RBC % (test code = 0.0 % 0.0-0.1 N NRBC%) NEUTROPHIL # (test code = NT#) 2.9 K/mm3 2.4-6.3 N IMMATURE GRANULOCYTE # (test 0.03 x10 3/uL 0.00-0.07 N code = IG#) LYMPHOCYTE # (test code = LY#) 2.3 K/mm3 1.2-4.0 N MONOCYTE # (test code = MO#) 0.9 K/mm3 0.0-0.6 H EOSINOPHIL # (test code = EO#) 0.1 K/MM3 0.0-0.7 N BASOPHIL # (test code = BA#) 0.0 K/mm3 0.0-0.2 N NUCLEATED RBC # (test code = 0.00 X10 3uL 0.00-0.01 N NRBC#) [id number] 11:46:00 Test Item Value Reference Range Interpretation Comments GLUBED (test code = GLUBED) 116 mg/dL 70-110 H [id number] 06:46:00 Test Item Value Reference Range Interpretation Comments GLUBED (test code = GLUBED) 121 mg/dL 70-110 H [id number] 01:28:00 Test Item Value Reference Range Interpretation Comments GLUBED (test code = GLUBED) 109 mg/dL 70-110 N [id number] 21:14:00 Test Item Value Reference Range Interpretation Comments GLUBED (test code = GLUBED) 94 mg/dL 70-110 N [id number] 16:25:00 Test Item Value Reference Range Interpretation Comments GLUBED (test code = GLUBED) 103 mg/dL 70-110 N [id number] 11:20:00 Test Item Value Reference Range Interpretation Comments GLUBED (test code = GLUBED) 73 mg/dL 70-110 N COMPREHENSIVE METABOLIC [id number] 09:40:00 Test Item Value Reference Range Interpretation Comments SODIUM (test code = NA) 139 mmol/l 134.0-147.0 N POTASSIUM (test code = K) 3.9 mmol/L 3.6-5.2 N CHLORIDE (test code = CL) 103 mmol/l 98.0-107.0 N CARBON DIOXIDE (test code = CO2) 28.1 mmol/l 21.0-33.0 N ANION GAP (test code = GAP) 11.8 0-20 N GLUCOSE (test code = GLU) 117 mg/dl 70.0-110.0 H BLOOD UREA NITROGEN (test code = 45 mg/dl 7.0-18.0 H BUN) CREATININE (test code = CREAT) 1.91 mg/dL 0.60-1.30 H GFR NON BLACK (test code = 29 mL/min 90-95 L GFRNONBLACK) GFR BLACK (test code = GFRBLACK) 35 mL/min 109-115 L TOTAL PROTEIN (test code = PROT) 7.2 gm/dL 6.4-8.2 N ALBUMIN (test code = ALB) 2.6 gm/dl 3.2-4.7 L CALCIUM (test code = CA) 9.7 mg/dl 8.0-10.5 N BILIRUBIN TOTAL (test code = 0.3 mg/dl 0.0-1.0 N BILT) SGOT/AST (test code = AST) 20 Units/L 15-37 N SGPT/ALT (test code = ALT) 22 Units/L 12.0-78.0 N ALKALINE PHOSPHATASE TOTAL (test 54 Units/L 50.0-136.0 N code = ALKP) LIPID PROFILE (CORONARY RISK)2021-04-16 09:40:00 Test Item Value Reference Range Interpretation Comments TRIGLYCERIDES (test code = TRIG) 223 mg/dl 40.0-150.0 H CHOLESTEROL (test code = CHOL) 206 mg/dl 0.0-200.0 H CHOLESTEROL/HDL RATIO (test code = 5.4 RATIO CHOLHDL) HDL CHOLESTEROL (test code = HDL) 38 mg/dl 30.0-60.0 N LIPOPROTEIN LDL (test code = LDL) 131 mg/dl 70-130 H [id number] 09:40:00 Test Item Value Reference Range Interpretation Comments MAGNESIUM (test code = MAG) 2.4 mg/dl 1.8-2.4 N VITAMIN [id number] 09:40:00 Test Item Value Reference Range Interpretation Comments VITAMIN B12 (test code = VITB12) 887 pg/mL 193-986 N FOLIC [id number] 09:40:00 Test Item Value Reference Range Interpretation Comments FOLIC ACID (test code = FOL) 18.7 ng/mL 3.1-17.5 H [id number] 09:40:00 Test Item Value Reference Range Interpretation Comments PREALBUMIN (test code = PREALB) 23.6 MG/DL 16.0-40.0 N [id number] 08:56:00 Test Item Value Reference Range Interpretation Comments GLUBED (test code = GLUBED) 116 mg/dL 70-110 H CBC W/AUTO [id number] 08:32:00 Test Item Value Reference Range Interpretation Comments WHITE BLOOD CELL (test code = 7.0 K/mm3 4.5-11.0 N WBC) RED BLOOD CELL (test code = 3.48 M/mm3 3.80-5.20 L RBC) HEMOGLOBIN (test code = HGB) 10.2 gm/dL 12.0-16.0 L HEMATOCRIT (test code = HCT) 31.5 % 36.0-48.0 L MEAN CELL VOLUME (test code = 90.5 UM3 82.0-99.0 MCV) MEAN CELL HGB (test code = MCH) 29.3 UUG 25.5-32.5 N MEAN CELL HGB CONCETRATION 32.4 gm/dL 29.0-35.5 N (test code = MCHC) RED CELL DISTRIBUTION WIDTH 13.3 % 11.5-15.0 N (test code = RDW) RED CELL DISTRIBUTION WIDTH SD 43.5 fL 34.8-50.2 N (test code = RDW-SD) PLATELET COUNT (test code = 125 K/mm3 150-400 L PLT) MEAN PLATELET VOLUME (test code 10.8 fl 7.4-10.4 H = MPV) NEUTROPHIL % (test code = NT%) 44.9 % 49.0-76.0 L IMMATURE GRANULOCYTE % (test 0.6 % 0.0-0.4 H code = IG%) LYMPHOCYTE % (test code = LY%) 39.1 % 23.0-38.0 H MONOCYTE % (test code = MO%) 12.4 % 1.0-10.0 H EOSINOPHIL % (test code = EO%) 2.7 % 1.0-5.0 N BASOPHIL % (test code = BA%) 0.3 % 0.0-1.0 N NUCLEATED RBC % (test code = 0.0 % 0.0-0.1 N NRBC%) NEUTROPHIL # (test code = NT#) 3.2 K/mm3 2.4-6.3 N IMMATURE GRANULOCYTE # (test 0.04 x10 3/uL 0.00-0.07 N code = IG#) LYMPHOCYTE # (test code = LY#) 2.8 K/mm3 1.2-4.0 N MONOCYTE # (test code = MO#) 0.9 K/mm3 0.0-0.6 H EOSINOPHIL # (test code = EO#) 0.2 K/MM3 0.0-0.7 N BASOPHIL # (test code = BA#) 0.0 K/mm3 0.0-0.2 N NUCLEATED RBC # (test code = 0.00 X10 3uL 0.00-0.01 N NRBC#) [id number] 05:53:00 Test Item Value Reference Range Interpretation Comments GLUBED (test code = GLUBED) 98 mg/dL 70-110 N [id number] 02:48:00 Test Item Value Reference Range Interpretation Comments GLUBED (test code = GLUBED) 107 mg/dL 70-110 N [id number] 21:32:00 Test Item Value Reference Range Interpretation Comments GLUBED (test code = GLUBED) 100 mg/dL 70-110 N [id number] 17:27:00 Test Item Value Reference Range Interpretation Comments GLUBED (test code = GLUBED) 126 mg/dL 70-110 H [id number] 12:39:00 Test Item Value Reference Range Interpretation Comments GLUBED (test code = GLUBED) 108 mg/dL 70-110 N BASIC METABOLIC [id number] 08:53:00 Test Item Value Reference Range Interpretation Comments SODIUM (test code = NA) 142 mmol/l 134.0-147.0 N POTASSIUM (test code = K) 4.1 mmol/L 3.6-5.2 N CHLORIDE (test code = CL) 106 mmol/l 98.0-107.0 N CARBON DIOXIDE (test code = CO2) 28.7 mmol/l 21.0-33.0 N ANION GAP (test code = GAP) 11.4 0-20 N GLUCOSE (test code = GLU) 120 mg/dl 70.0-110.0 H BLOOD UREA NITROGEN (test code = 52 mg/dl 7.0-18.0 H BUN) CREATININE (test code = CREAT) 2.01 mg/dL 0.60-1.30 H GFR NON BLACK (test code = 27 mL/min 90-95 L GFRNONBLACK) GFR BLACK (test code = GFRBLACK) 33 mL/min 109-115 L CALCIUM (test code = CA) 9.7 mg/dl 8.0-10.5 N [id number] 07:44:00 Test Item Value Reference Range Interpretation Comments GLUBED (test code = GLUBED) 100 mg/dL 70-110 N [id number] 05:35:00 Test Item Value Reference Range Interpretation Comments GLUBED (test code = GLUBED) 105 mg/dL 70-110 N [id number] 23:44:00 Test Item Value Reference Range Interpretation Comments GLUBED (test code = GLUBED) 107 mg/dL 70-110 N [id number] 20:13:00 Test Item Value Reference Range Interpretation Comments GLUBED (test code = GLUBED) 108 mg/dL 70-110 N - US RETRO [id number] 19:55:00 [facility] : 1965 Sex: F FAX: Kendra Osorio MD [phone] [place]: St: ADM FAX: Celeste Lee MD [phone] Name: ELEAN DIEGO [facility] : 1965 Age/S: 55/F [address] [facility] Unit #: [id number] Loc: [address] [place] [address] Phys: [place] [id number] Acct: [id number] Dis Date: Status: ADM IN PHONE #: [phone] Exam Date: 04/14/20211838 FAX #: [phone] Reason: F/u of hydroneprosis EXAMS: CPT CODE: [id number] US RETRO LTD 73157 EXAMINATION: - US RETRO LTD COMPARISON: Ultrasound performed April 10, 2021 HISTORY: Hydronephrosis follow-up LOCATION CODE: C3 TECHNIQUE: Multiplanar grayscale and Doppler ultrasound images of the kidneys are submitted for review. FINDINGS: RIGHT KIDNEY: The right kidney measures 11.0 x 5.6 x 5.9 cm. Moderate right hydronephrosis is again identified, relatively stable. No evidence of renal mass or renal calcification is identified.. LEFT KIDNEY: The left kidney measures 12.0 x 5.7 x 5.7 cm. Evaluation of the left kidney is limited due to the patient's body habitus and rib shadowing. No obvious hydronephrosis, mass or calcification is identified.. URINARY BLADDER: Urinary bladder remains decompressed by a Deleon catheter. IMPRESSION: Stable right hydronephrosis, without no new sonographic abnormalities identified at 1954 Reported and signed by: Marcie Cruz M.D CC: Kendra Osorio MD; Celeste Collazo MD Technologist: RAM[facility] Date/Time/By: 04/14/2021 (1954) : By: [email or web address] PAGE 1 Signed Report FAX: Kendra Osorio MD [phone] [place]: St: ADM FAX: Celeste Lee MD [phone] Name: ELENA DIEGO [facility] : 1965 Age/S: 55/F [address] [facility] Unit #: [id number] L oc: [address] [place], [place]: [place] [address] Acct: [id number] Dis Date: Status: ADM IN PHONE #: [phone] Exam Date: 04/14/2021 183 FAX #: [phone] Reason: F/u of hydroneprosis EXAMS: CPT CODE: [id number] [facility] [address] <Continued> Orig Print D/T: S: 04/14/2021 (1958) PAGE 2 Signed [id number] 15:33:00 Test Item Value Reference Range Interpretation Comments GLUBED (test code = GLUBED) 112 mg/dL 70-110 H [id number] 10:58:00 Test Item Value Reference Range Interpretation Comments GLUBED (test code = GLUBED) 162 mg/dL 70-110 H BASIC METABOLIC [id number] 08:18:00 Test Item Value Reference Range Interpretation Comments SODIUM (test code = NA) 145 mmol/l 134.0-147.0 N POTASSIUM (test code = K) 4.1 mmol/L 3.6-5.2 N CHLORIDE (test code = CL) 107 mmol/l 98.0-107.0 N CARBON DIOXIDE (test code = CO2) 29.4 mmol/l 21.0-33.0 N ANION GAP (test code = GAP) 12.7 0-20 N GLUCOSE (test code = GLU) 131 mg/dl 70.0-110.0 H BLOOD UREA NITROGEN (test code = 67 mg/dl 7.0-18.0 H BUN) CREATININE (test code = CREAT) 2.08 mg/dL 0.60-1.30 H GFR NON BLACK (test code = 26 mL/min 90-95 L GFRNONBLACK) GFR BLACK (test code = GFRBLACK) 31 mL/min 109-115 L CALCIUM (test code = CA) 10.4 mg/dl 8.0-10.5 N [id number] 06:57:00 Test Item Value Reference Range Interpretation Comments GLUBED (test code = GLUBED) 124 mg/dL 70-110 H [id number] 06:25:00 Test Item Value Reference Range Interpretation Comments GLUBED (test code = GLUBED) 124 mg/dL 70-110 H [id number] 00:35:00 Test Item Value Reference Range Interpretation Comments GLUBED (test code = GLUBED) 146 mg/dL 70-110 H [id number] 21:44:00 Test Item Value Reference Range Interpretation Comments GLUBED (test code = GLUBED) 138 mg/dL 70-110 H [id number] 17:59:00 Test Item Value Reference Range Interpretation Comments GLUBED (test code = GLUBED) 127 mg/dL 70-110 H [id number] 11:09:00 Test Item Value Reference Range Interpretation Comments GLUBED (test code = GLUBED) 182 mg/dL 70-110 H [id number] 05:53:00 Test Item Value Reference Range Interpretation Comments GLUBED (test code = GLUBED) 153 mg/dL 70-110 H BASIC METABOLIC [id number] 02:37:00 Test Item Value Reference Range Interpretation Comments SODIUM (test code = NA) 146 mmol/l 134.0-147.0 N POTASSIUM (test code = K) 3.9 mmol/L 3.6-5.2 N CHLORIDE (test code = CL) 112 mmol/l 98.0-107.0 H CARBON DIOXIDE (test code = CO2) 30.5 mmol/l 21.0-33.0 N ANION GAP (test code = GAP) 7.4 0-20 N GLUCOSE (test code = GLU) 153 mg/dl 70.0-110.0 H BLOOD UREA NITROGEN (test code = 86 mg/dl 7.0-18.0 H BUN) CREATININE (test code = CREAT) 2.37 mg/dL 0.60-1.30 H GFR NON BLACK (test code = 22 mL/min 90-95 L GFRNONBLACK) GFR BLACK (test code = GFRBLACK) 27 mL/min 109-115 L CALCIUM (test code = CA) 10.8 mg/dl 8.0-10.5 H [id number] 23:18:00 Test Item Value Reference Range Interpretation Comments GLUBED (test code = GLUBED) 122 mg/dL 70-110 H PTH INTACT [id number] 18:52:00 Test Item Value Reference Range Interpretation Comments PARATHYROID CALCIUM (test code = 10.9 mg/dL 8.7-10.2 H PTHCA) PARATHYROID HORMONE INTACT (test 6 pg/mL 15-65 L code = PARAI) PT H/S [id number] 04/11/21 0801.BATCH8 SENTVITAMIN D [id number] 18:52:00 Test Item Value Reference Range Interpretation Comments VITAMIN D 27.2 ng/mL 30.0-100.0 L Vitamin D defic iency has 25-HYDROXY (test been define d by the code = VITD25) Kimberly [facility] edicine and an Endocrine So ety practice guidel ine as alevel of serum 25-OH vitamin D less than 20 ng/mL (1,2).The Endocrine Society went on to further define vitamin Dinsufficiency as a level between 21 and 29 ng/mL (2).1. IOM (Ins [facility] of Medicine). 2010 . Dietary reference int akes for calcium and D. [place]: The [employer] .2. Aggie MF, Christi NC, Maritza estes MCCABE, et al. Evaluatio n, treatment, and prevention of vitamin D deficiency: an Endocrine Society clinica l practice guideline. TIM EM. 2010; 96(0):1911-30.P erformed At: [facility] [address] [place], [place] [id number] Georgi Nunez MD Ph:[phone] CURRENT SPECIMEN QNS.RECOLL.[id number] 18:18:00 Test Item Value Reference Range Interpretation Comments GLUBED (test code = GLUBED) 143 mg/dL 70-110 H BASIC METABOLIC [id number] 17:57:00 Test Item Value Reference Range Interpretation Comments SODIUM (test code = NA) 148 mmol/l 134.0-147.0 H POTASSIUM (test code = K) 4.1 mmol/L 3.6-5.2 N CHLORIDE (test code = CL) 111 mmol/l 98.0-107.0 H CARBON DIOXIDE (test code = CO2) 30.4 mmol/l 21.0-33.0 N ANION GAP (test code = GAP) 10.7 0-20 N GLUCOSE (test code = GLU) 165 mg/dl 70.0-110.0 H BLOOD UREA NITROGEN (test code = 93 mg/dl 7.0-18.0 H BUN) CREATININE (test code = CREAT) 2.47 mg/dL 0.60-1.30 H GFR NON BLACK (test code = 21 mL/min 90-95 L GFRNONBLACK) GFR BLACK (test code = GFRBLACK) 26 mL/min 109-115 L CALCIUM (test code = CA) 10.7 mg/dl 8.0-10.5 H [id number] 16:18:00 Test Item Value Reference Range Interpretation Comments GLUBED (test code = GLUBED) 158 mg/dL 70-110 H ARTERIAL BLOOD [id number] 16:08:00 Test Item Value Reference Range Interpretation Comments ARTERIAL BLOOD GAS PH 7.444 7.350-7.450 N (test code = PHA) ARTERIAL BLOOD GAS PCO2 45.7 mmHg 35.0-45.0 H (test code = PCO2A) ARTERIAL BLOOD GAS PO2 296.3 mmHg See_Comment [Aut omated (test code = PO2A) message] The system which generated this result transmit billy reference range : 80.0. The reference range was not used to interpret this result as normal/abnormal . BICARBONATE TOTAL HCO3 30.6 MMOL/L 22.0-26.0 H (test code = HCO3) BASE EXCESS (test code = 5.7 MMOL/L -4.0-4.0 H MADDIE) ABG O2 SATURATION (test 99.4 % 92.0-99.0 H code = SATA) FIO2 (test code = FIO2A) 98.0 ABG SITE (test code = RR SITEA) ALLENS TEST (test code = Unable ALLENS) TOTAL HGB (test code = 14.0 g/dL 12.0-16.0 N THB) CARBOXYHEMOGLOBIN (test 0.3 % THgb 0.0-1.5 N code = HOHGBT) METHEMOGLOBIN (test code 0.4 % 0.0-1.5 N NOR MAL = METHGB) <2.0POTENTIALLY TOXIC >20.0 PaO2/[id number] 16:08:00 Test Item Value Reference Range Interpretation Comments PaO2/FiO2 (test code = ESN3ZBS1) 302.30 mm/Hg [id number] 12:35:00 Test Item Value Reference Range Interpretation Comments GLUBED (test code = GLUBED) 174 mg/dL 70-110 H [id number] 06:06:00 Test Item Value Reference Range Interpretation Comments GLUBED (test code = GLUBED) 196 mg/dL 70-110 H [id number] 00:15:00 Test Item Value Reference Range Interpretation Comments GLUBED (test code = GLUBED) 158 mg/dL 70-110 H [id number] 21:33:00 Test Item Value Reference Range Interpretation Comments GLUBED (test code = GLUBED) 168 mg/dL 70-110 H - XR CHEST 1 [id number] 20:03:00 [facility] : 1965 Sex: F FAX: Kendra Osorio MD [phone] [place]: St: ADM FAX: Jo Ann Rivers [phone] Name: ELENA DIEGO [facility] : 1965 Age/S: 55/F [address] [facility] Unit #: [id number] Loc: [address] Phys: Jo Ann Rivers [employer] [address] Acct: [id number] Dis Date: Status: ADM IN PHONE #: [phone] Exam Date: 04/11/20211937 FAX #: [phone] Reason: LOW 02 EXAMS: CPT CODE: [id number] XR CHEST 1 V 90661 LOCATION: H43 EXAM: - XR CHEST 1 V HISTORY: LOW 02 TECHNIQUE: Frontal view of the chest. COMPARISON: None. FINDINGS: The lungs are adequately inflated and clear. No evidence of pneumothorax or pleural effusion. Normal heart size. Mediastinal contours are within normal limits. Tracheostomy tube tip is at the level of the clavicular heads. Osseous structures are intact. IMPRESSION: No evidence of acute cardiopulmonary disease. at 2002 Reported and signed by: Monie Metcalf M.D. CC: Kendra Osorio MD; Jo Ann Rivers Technologist: Chelly Parker Trnscrd Date/Time/By: 04/11/2021 (2002) : By: [email or web address] PAGE1 Signed Report FAX: Kendra Osorio MD [phone] [place]: St: ADM FAX: Jo Ann Rivers [phone] Name: ELENA DIEGO [facility] : 1965 Age/S: 55/F [address] [facility] Unit #: [id number] Loc: [address] Phys: Jo Ann Rivers APRN [id number] Acct: [id number] Dis Date: Status: ADM IN PHONE #: [phone] Exam Date: 04/11/20211937 FAX #: [phone] Reason: LOW 02 EXAMS: CPT CODE: [id number] XR CHEST 1 V 81652 <Continued> Orig Print D/T: S: 04/11/2021 (2005) PAGE 2 Signed ReportCOMPREHENSIVE METABOLIC [id number] 15:16:00 Test Item Value Reference Range Interpretation Comments SODIUM (test code = NA) 148 mmol/l 134.0-147.0 H POTASSIUM (test code = K) 4.1 mmol/L 3.6-5.2 N CHLORIDE (test code = CL) 112 mmol/l 98.0-107.0 H CARBON DIOXIDE (test code = CO2) 24.4 mmol/l 21.0-33.0 N ANION GAP (test code = GAP) 15.7 0-20 N GLUCOSE (test code = GLU) 293 mg/dl 70.0-110.0 H BLOOD UREA NITROGEN (test code = 126 mg/dl 7.0-18.0 H BUN) CREATININE (test code = CREAT) 2.85 mg/dL 0.60-1.30 H GFR NON BLACK (test code = 18 mL/min 90-95 L GFRNONBLACK) GFR BLACK (test code = GFRBLACK) 22 mL/min 109-115 L TOTAL PROTEIN (test code = PROT) 7.9 gm/dL 6.4-8.2 N ALBUMIN (test code = ALB) 2.6 gm/dl 3.2-4.7 L CALCIUM (test code = CA) 11.7 mg/dl 8.0-10.5 H BILIRUBIN TOTAL (test code = 0.2 mg/dl 0.0-1.0 N BILT) SGOT/AST (test code = AST) 31 Units/L 15-37 N SGPT/ALT (test code = ALT) 37 Units/L 12.0-78.0 N ALKALINE PHOSPHATASE TOTAL (test 73 Units/L 50.0-136.0 N code = ALKP) PT H/S [id number] 04/11/21 0800.BATCH9 SENTPT H/S [id number] 04/11/21 08. [id number] 15:16:00 Test Item Value Reference Range Interpretation Comments PHOSPHOROUS (test code = PHOS) 4.9 mg/dl 2.5-4.9 N PT H/S [id number] 04/11/21 08.BATCH9 SENTPT H/S [id number] 04/11/21 08. [id number] 15:16:00 Test Item Value Reference Range Interpretation Comments MAGNESIUM (test code = MAG) 2.7 mg/dl 1.8-2.4 H PT H/S [id number] 04/11/21 0800.BATCH9 SENTPT H/S [id number] 04/11/21799.CALCIUM [id number] 15:16:00 Test Item Value Reference Range Interpretation Comments CALCIUM IONIZED (test code = DELIO) 1.51 MMOL/L 1.12-1.32 H PT H/S [id number] 04/11/21 08.BATCH9 SENTPT H/S [id number] 04/11/21 08.CALCIUM [id number] 15:16:00 Test Item Value Reference Range Interpretation Comments CALCIUM IONIZED (test code = DELIO) 1.51 MMOL/L 1.12-1.32 H PT H/S [id number] 04/11/21 08.[id number] 14:59:00 Test Item Value Reference Range Interpretation Comments GLUBED (test code = GLUBED) 148 mg/dL 70-110 H [id number] 10:50:00 Test Item Value Reference Range Interpretation Comments GLUBED (test code = GLUBED) 248 mg/dL 70-110 H [id number] 10:40:00 Test Item Value Reference Range Interpretation Comments HGBA1C% (test code = HGBA1C%) 8.0 %A1C 4.8-6.0 H ESTIMATED AVERAGE GLUCOSE (test 183 MG/DL code = EAG) PT H/S [id number] 04/11/21 08.V30JEQJRKW D [id number] 10:15:00 Test Item Value Reference Range Interpretation Comments VITAMIN D 25-HYDROXY (test code = ng/mL 30.0-100.0 VITD25) PT H/S [id number] 04/11/21 0800.CBC W/AUTO [id number] 09:41:00 Test Item Value Reference Range Interpretation Comments WHITE BLOOD CELL (test code = 7.7 K/mm3 4.5-11.0 N WBC) RED BLOOD CELL (test code = 3.89 M/mm3 3.80-5.20 N RBC) HEMOGLOBIN (test code = HGB) 11.5 gm/dL 12.0-16.0 L HEMATOCRIT (test code = HCT) 40.0 % 36.0-48.0 N MEAN CELL VOLUME (test code = 102.8 UM3 82.0-99.0 H MCV) MEAN CELL HGB (test code = MCH) 29.6 UUG 25.5-32.5 N MEAN CELL HGB CONCETRATION 28.8 gm/dL 29.0-35.5 L (test code = MCHC) RED CELL DISTRIBUTION WIDTH 13.7 % 11.5-15.0 N (test code = RDW) RED CELL DISTRIBUTION WIDTH SD 51.9 fL 34.8-50.2 H (test code = RDW-SD) PLATELET COUNT (test code = 96 K/mm3 150-400 L PLT) MEAN PLATELET VOLUME (test code 11.9 fl 7.4-10.4 H = MPV) NEUTROPHIL % (test code = NT%) 56.5 % 49.0-76.0 N IMMATURE GRANULOCYTE % (test 0.7 % 0.0-0.4 H code = IG%) LYMPHOCYTE % (test code = LY%) 31.2 % 23.0-38.0 N MONOCYTE % (test code = MO%) 9.2 % 1.0-10.0 N EOSINOPHIL % (test code = EO%) 2.0 % 1.0-5.0 N BASOPHIL % (test code = BA%) 0.4 % 0.0-1.0 N NUCLEATED RBC % (test code = 0.0 % 0.0-0.1 N NRBC%) NEUTROPHIL # (test code = NT#) 4.4 K/mm3 2.4-6.3 N IMMATURE GRANULOCYTE # (test 0.05 x10 3/uL 0.00-0.07 N code = IG#) LYMPHOCYTE # (test code = LY#) 2.4 K/mm3 1.2-4.0 N MONOCYTE # (test code = MO#) 0.7 K/mm3 0.0-0.6 H EOSINOPHIL # (test code = EO#) 0.2 K/MM3 0.0-0.7 N BASOPHIL # (test code = BA#) 0.0 K/mm3 0.0-0.2 N NUCLEATED RBC # (test code = 0.00 X10 3uL 0.00-0.01 N NRBC#) PT H/S [id number] 04/11/21 0801.[id number] 05:50:00 Test Item Value Reference Range Interpretation Comments GLUBED (test code = GLUBED) 277 mg/dL 70-110 H UR SODIUM [id number] 03:40:00 Test Item Value Reference Range Interpretation Comments UR SODIUM RANDOM (test code = JOÃO) 43 mmol/L 40-220 N UR CREATININE [id number] 03:40:00 Test Item Value Reference Range Interpretation Comments UR CREATININE RESULT (test code = 43.18 MG/DL 30-125 N CREATU) [id number] 00:36:00 Test Item Value Reference Range Interpretation Comments GLUBED (test code = GLUBED) 286 mg/dL 70-110 H [id number] 21:16:00 Test Item Value Reference Range Interpretation Comments GLUBED (test code = GLUBED) 293 mg/dL 70-110 H - US RETRO [id number] 16:14:00 [facility] [place]: ELENA DIEGO : 1965 Sex: F FAX: Kendra Osorio MD [phone] [place]: St: [facility] FAX: Celeste Lee MD [phone] Name: ELENA DIEGO [facility] : 1965 Age/S: 55/F [address] [facility] #: [id number] Loc: JULI[place], [place]: [place] [id number] Acct: [id number] Dis Date: Status: ADM IN PHONE #: [phone] Exam Date: 04/10/2021 1542 FAX #: [phone] Reason: RUTHANN EXAMS: CPT CODE: [id number] US RETRO LTD [id number] Dictation location: 9. RENAL ULTRASOUND HISTORY: RUTHANN FINDINGS: Limited exam due to body habitus. The right kidney measures 11.3 x 4.8 x 4.3 cm with at least moderate hydronephrosis. Renal echotexture is within normal limits. No evidence ofnephrolithiasis or perirenal fluid collection. Left kidney measures 8.9 x 5.7 x 5.4 cm. The shape and echotexture are within normal limits. No evidence of hydronephrosis, nephrolithiasis or perirenal fluid collection. Urinary bladder decompressed by Deleon catheter. IMPRESSION: Moderate right hydronephrosis. The cause of the obstruction is not seen by ultrasound. Consider further assessment with a CT abdomen andpelvis. at 2541 Reported and signed by: Miller Vazquez M.D. CC: Kendra Osorio MD; Celeste Collazo MD Technologist: SHELDON PUGH Trnokrd Date/Time/By: 04/10/2021 (2629) : By: [email or web address] 1 Signed Report FAX: Kendra Osorio MD [phone] [place]: St: [facility] FAX: Celeste Lee MD [phone] ------- Name: ELENA DIEGO [facility] : 1965 Age/S: 55/F [address] [facility] Unit #: [id number] Loc: JULIETH [place], [place] [id number] Acct: [id number] Dis Date: Status: ADM IN PHONE #: [phone] Exam Date: 04/10/2021 1542 FAX #: [phone] Reason: RUTHANN EXAMS: CPT CODE: [id number] RETRO LTD 42903 <Continued> Orig Print D/T: S: 04/10/2021 (7744) PAGE 2 Signed ReportUA RFLX MICR CULT IF [id number] 11:58:00 Test Item Value Reference Range Interpretation Comments UA GLUCOSE DIPSTICK 100 mg/dl mg/dl NORMAL A (test code = DGLUU) UA BILIRUBIN DIPSTICK NEGATIVE mg/dL NEGATIVE (test code = BILU) UA KETONE DIPSTICK NEGATIVE mg/dl NEGATIVE (test code = KETU) UA SPECIFIC GRAVITY 1.015 1.000-1.030 (test code = SGU) UA BLOOD DIPSTICK NEGATIVE NEGATIVE (test code = SERGEI) Won/micL UA PH DIPSTICK (test 5.0 5.0-9.0 code = SHAWANDA) UA PROTEIN DIPSTICK 100 mg/dl NEGATIVE A (test code = PROU) UA UROBILINIOGEN NORMAL mg/dl NORMAL DIPSTICK (test code = URO) UA NITRITE DIPSTICK NEGATIVE NEGATIVE (test code = TARYN) UA LEUKOCYTE ESTERASE NEGATIVE NEGATIVE DIPSTICK (test code = David/micL LEUU) UA WBC (test code = 0-3 WBC/HPF NONE URIC ACI D WBCU) CRYSTALS SEEN - FEW/HPF UA CULTURE NEEDED? NO, WBC<10 Culture Chk Criteria not (test code = UACULT) Criteria met, Ur ine Culture cancelled. UA SQUAMOUS CELLS 5-10 #/hpf (test code = SQU) Indication for culture: Dysuria/FrequencySpecimen Description: CLEAN CATCH BASIC METABOLIC [id number] 11:21:00 Test Item Value Reference Range Interpretation Comments SODIUM (test code = NA) 152 mmol/l 134.0-147.0 H POTASSIUM (test code = K) 4.2 mmol/L 3.6-5.2 N CHLORIDE (test code = CL) 113 mmol/l 98.0-107.0 H CARBON DIOXIDE (test code = CO2) 29.7 mmol/l 21.0-33.0 N ANION GAP (test code = GAP) 13.5 0-20 N GLUCOSE (test code = GLU) 393 mg/dl 70.0-110.0 H BLOOD UREA NITROGEN (test code = 165 mg/dl 7.0-18.0 H BUN) CREATININE (test code = CREAT) 3.80 mg/dL 0.60-1.30 H GFR NON BLACK (test code = 13 mL/min 90-95 L GFRNONBLACK) GFR BLACK (test code = GFRBLACK) 16 mL/min 109-115 L CALCIUM (test code = CA) 13.4 mg/dl 8.0-10.5 HH HEPATIC FUNCTION PANEL [id number] 11:21:00 Test Item Value Reference Range Interpretation Comments TOTAL PROTEIN (test code = PROT) 8.4 gm/dL 6.4-8.2 H ALBUMIN (test code = ALB) 2.8 gm/dl 3.2-4.7 L BILIRUBIN TOTAL (test code = BILT) 0.2 mg/dl 0.0-1.0 N BILIRUBIN DIRECT (test code = <0.1 mg/dl 0.0-0.3 N BILD) SGOT/AST (test code = AST) 35 Units/L 15-37 N SGPT/ALT (test code = ALT) 44 Units/L 12.0-78.0 N ALKALINE PHOSPHATASE TOTAL (test 88 Units/L 50.0-136.0 N code = ALKP) [id number] 11:21:00 Test Item Value Reference Range Interpretation Comments LIPASE (test code = LIP) 90 Units/L 65.0-230.0 N CBC W/AUTO [id number] 10:29:00 Test Item Value Reference Range Interpretation Comments WHITE BLOOD CELL (test code = 8.6 K/mm3 4.5-11.0 N WBC) RED BLOOD CELL (test code = 4.37 M/mm3 3.80-5.20 N RBC) HEMOGLOBIN (test code = HGB) 12.7 gm/dL 12.0-16.0 N HEMATOCRIT (test code = HCT) 39.9 % 36.0-48.0 N MEAN CELL VOLUME (test code = 91.3 UM3 82.0-99.0 N MCV) MEAN CELL HGB (test code = MCH) 29.1 UUG 25.5-32.5 N MEAN CELL HGB CONCETRATION 31.8 gm/dL 29.0-35.5 N (test code = MCHC) RED CELL DISTRIBUTION WIDTH 13.6 % 11.5-15.0 N (test code = RDW) RED CELL DISTRIBUTION WIDTH SD 46.0 fL 34.8-50.2 N (test code = RDW-SD) PLATELET COUNT (test code = 124 K/mm3 150-400 L PLT) MEAN PLATELET VOLUME (test code 12.1 fl 7.4-10.4 H = MPV) NEUTROPHIL % (test code = NT%) 57.6 % 49.0-76.0 N IMMATURE GRANULOCYTE % (test 1.2 % 0.0-0.4 H code = IG%) LYMPHOCYTE % (test code = LY%) 31.3 % 23.0-38.0 N MONOCYTE % (test code = MO%) 8.4 % 1.0-10.0 N EOSINOPHIL % (test code = EO%) 1.4 % 1.0-5.0 N BASOPHIL % (test code = BA%) 0.1 % 0.0-1.0 N NUCLEATED RBC % (test code = 0.0 % 0.0-0.1 N NRBC%) NEUTROPHIL # (test code = NT#) 5.0 K/mm3 2.4-6.3 N IMMATURE GRANULOCYTE # (test 0.10 x10 3/uL 0.00-0.07 H code = IG#) LYMPHOCYTE # (test code = LY#) 2.7 K/mm3 1.2-4.0 N MONOCYTE # (test code = MO#) 0.7 K/mm3 0.0-0.6 H EOSINOPHIL # (test code = EO#) 0.1 K/MM3 0.0-0.7 N BASOPHIL # (test code = BA#) 0.0 K/mm3 0.0-0.2 N NUCLEATED RBC # (test code = 0.00 X10 3uL 0.00-0.01 N NRBC#) CT SOFT TISSUE NECK WO [id number] 00:51:51 Tracheostomy tube terminating approximately 4 cm from the collin Otherwise unremarkable CT neckCT SOFT TISSUE NECK WO CONTRAST HISTORY: Female 55 years Esophageal obstruction . Per chart review, patientis here for pulling out her tracheostomy tube. COMPARISON: None TECHNIQUE: Routine CT neck without contrast FINDINGS: The partially visualized, large extradural low density fluid collectionoverlying [facility] convexity craniectomy is described on the accompanying CThead. Like of IV contrast, limits evaluation of the soft tissues. The nasopharynx, oropharynx, hypopharynx and larynx are unremarkable. Atracheostomy tube is present, the tip of which terminates approximately 4cm from the collin. The trachea and cervical esophagus are otherwiseunremarkable. The oral tongue and floor of mouth are unremarkable. The parotid and submandibular salivary glands are unremarkable. The thyroidgland is unremarkable. No pathologically enlarged cervical lymph nodes are present by CT sizecriteria. [facility], Radiant Results Inft User - 03/31/2021 7:52 PM CDT CTSOFT TISSUE NECK WO CONTRASTHISTORY: Female 55 years Esophageal obstruction . Per chart review, patientis here for pulling out her tracheostomy tube.COMPARISON: NoneTECHNIQUE: Routine CT neck without contrastFINDINGS:The partially visualized, large extradural low density fluid collectionoverlying a right convexity craniectomy is described on the accompanying CThead.Like of IV contrast, limits evaluation of the soft tissues.The nasopharynx, oropharynx, hypopharynx and larynx are unremarkable. Atracheostomy tube is present, the tip of which terminates approximately 4cm from the collin. The trachea and cervical esophagus are otherwiseunremarkable.The oral tongue and floor of mouth are unremarkable.The parotid and submandibular salivary glands are unremarkable. The thyroidgland is unremarkable.No pathologically enlarged cervical lymph nodes are present by CT sizecriteria.IMPRESSIONTracheostomy tube terminating approximately 4 cm from the carinaOtherwise unremarkable CT neckUnSaint Mark's Medical CenterCT SOFT TISSUE NECK WO [id number] 00:51:51 Tracheostomy tube terminating approximately 4 cm from the collin Otherwise unremarkable CT neckCT SOFT TISSUE NECK WO CONTRAST HISTORY: Female 55 years Esophageal obstruction . Per chart review, patientis here for pulling out her tracheostomy tube. COMPARISON: None TECHNIQUE: Routine CT neck without contrast FINDINGS: The partially visualized, large extradural low density fluid collectionoverlying a right convexity craniectomy is described on the accompanying CThead. Like of IV contrast, limits evaluation of the soft tissues. The nasopharynx, oropharynx, hypopharynx and larynx are unremarkable. Atracheostomy tube is present, the tip of which terminates approximately 4cm from the collin. The trachea and cervical esophagus are otherwiseunremarkable. The oral tongue and floor of mouth are unremarkable. The parotid and submandibular salivary glands are unremarkable. The thyroidgland is unremarkable. No pathologically enlarged cervical lymph nodes are present by CT sizecriteria. [facility], Radiant Results Inft User - 03/31/2021 7:52 PM CDT CTSOFT TISSUE NECK WO CONTRASTHISTORY: Female 55 years Esophageal obstruction . Per chart review, patientis here for pulling out her tracheostomy tube.COMPARISON: NoneTECHNIQUE: Routine CT neck without contrastFINDINGS:The partially visualized, large extradural low density fluid collectionoverlying a right convexity craniectomy is described on the accompanying CThead.Like of IV contrast, limits evaluation of the soft tissues.The nasopharynx, oropharynx, hypopharynx and larynx are unremarkable. Atracheostomy tube is present, the tip of which terminates approximately 4cm from the collin. The trachea and cervical esophagus are otherwiseunremarkable.The oral tongue and floor of mouth are unremarkable.The parotid and submandibular salivary glands are unremarkable. The thyroidgland is unremarkable.No pathologically enlarged cervical lymph nodes are present by CT sizecriteria.IMPRESSIONTracheostomy tube terminating approximately 4 cm from the carinaOtherwise unremarkable CT neckUnSaint Mark's Medical CenterCT HEAD WO [id number] 00:47:33 Postsurgical changes of right convexity craniectomy. A large, low-density,multiloculated extraduralfluid collection overlying the craniectomyprobably represents a large pseudomeningocele. Remote encephalomalacia in the right frontoparietal operculum, basalganglia and left superior parietal lobe may be related to history of priortraumatic brain injury. No acute intracranial abnormality is identified.CT HEAD WO CONTRAST HISTORY: Female 55 years Traumatic brain injury (TBI), stable COMPARISON: None TECHNIQUE: Routine CT head without contrast FINDINGS: Postsurgical changes of right convexity craniectomy are noted. A large, lowdensity multiloculated, extradural fluid collection is noted over thecraniectomy bed. The ventricles and cerebral sulci are normal in caliber and configuration.No hydrocephalus or midline shift is present. The basal cisterns areunremarkable. No acute intracranial hemorrhage or significant mass effect is present.Remote encephalomalacia is noted in the right frontoparietal of perkilogram and underlying basal ganglia. An additional, remote infarct ispresent in the left superior parietal lobe. The cheng-white matterdifferentiation is otherwise preserved. No additional parenchym alattenuation abnormality is present. Mild volume loss is noted in the rightcerebral peduncle. Smallleft mastoid effusion is present, nonspecific. The right mastoid aircells and visualized paranasal air sinuses are essentially clear. [facility], Radiant Results Inft User - 03/31/2021 7:52 PM CDTFormattingof this note might be different from the original.CT HEAD WO CONTRASTHISTORY: Female 55 years Traumatic brain injury (TBI), stable COMPARISON: NoneTECHNIQUE: Routine CT head without contrastFINDINGS:Postsurgical changes of right convexity craniectomy are noted. A large, lowdensity multiloculated, extradural fluid collection is noted over thecraniectomy bed.The ventricles and cerebral sulci are normalin caliber and configuration.No hydrocephalus or midline shift is present. The basal cisterns areunremarkable.No acute intracranial hemorrhage or significant mass effect is present.Remote encephalomalacia is noted in the right frontoparietal of perkilogram and underlying basal ganglia. An additional, r emote infarct ispresent in the left superior parietal lobe. The cheng-white matterdifferentiation is otherwise preserved. No additional parenchymalattenuation abnormality is present. Mild volume loss isnoted in the rightcerebral peduncle.Small left mastoid effusion is present, nonspecific. The right mastoid aircells and visualized paranasal air sinuses are essentially clear.IMPRESSIONPostsurgical changes of right convexity craniectomy. A large, low-density,multiloculated extradural fluid collection overlying the craniectomyprobably represents a large pseudomeningocele.Remote encephalomalacia in theright frontoparietal operculum, basalganglia and left superior parietal lobe may be related to history of priortraumatic brain injury. No acute intracranial abnormality is identified.[facility]CT [facility] WO [id number] 00:47:33 Postsurgical changes of right convexity craniectomy. A large, low-density,multiloculated extraduralfluid collection overlying the craniectomyprobably represents a large pseudomeningocele. Remote encephalomalacia in the right frontoparietal operculum, basalganglia and left superior parietal lobe may be related to history of priortraumatic brain injury. No acute intracranial abnormality is identified.CT HEAD WO CONTRAST HISTORY: Female 55 years Traumatic brain injury (TBI), stable COMPARISON: None T ECHNIQUE: Routine CT head without contrast FINDINGS: Postsurgical changes of right convexity craniectomy are noted. A large, lowdensity multiloculated, extradural fluid collection is noted over thecraniectomy bed. The ventricles and cerebral sulci are normal in caliber and configuration.No hydrocephalus or midline shift is present. The basal cisterns areunremarkable. No acute intracranial hemorrhage or significant mass effect is present.Remote encephalomalacia is noted in the right frontoparietal ofperkilogram and underlying basal ganglia. An additional, remote infarct ispresent in the left superior parietal lobe. The cheng-white matterdifferentiation is otherwise preserved. No additional parenchymalattenuation abnormality is present. Mild volume loss is noted in the rightcerebral peduncle. Smallleft mastoid effusion is present, nonspecific. The right mastoid aircells and visualized paranasal air sinuses are essentially clear. [facility], [place], Radiant Results Inft User - 03/31/2021 7:52 PM CDTFormattingof this note might be different from the original.CT HEAD WO CONTRASTHISTORY: Female 55 years Traumatic brain injury (TBI), stable COMPARISON: NoneTECHNIQUE: Routine CT head without contrastFINDINGS:Postsurgical changes of right convexity craniectomy are noted. A large, lowdensity multiloculated, extradural fluid collection is noted over thecraniectomy bed.The ventricles and cerebral sulci are normalin caliber and configuration.No hydrocephalus or midline shift is present. The basal cisterns areunremarkable.No acute intracranial hemorrhage or significant mass effect is present.Remote encephalomalacia is noted in the right frontoparietal of perkilogram and underlying basal ganglia. An additional, remote infarct ispresent in the left superior parietal lobe. The cheng-white matterdifferentiation is otherwise preserved. No additional parenchymalattenuation abnormality is present. Mild volume loss isnoted in the rightcerebral peduncle.Small left mastoid effusion is present, nonspecific. The right mastoid aircells and visualized paranasal air sinuses are essentially clear.IMPRESSIONPostsurgical changes of right convexity craniectomy. A large, low-density,multiloculated extradural fluid collection o verlying the craniectomyprobably represents a large pseudomeningocele.Remote encephalomalacia in theright frontoparietal operculum, basalganglia and left superior parietal lobe may be related to history of priortraumatic brain injury. No acute intracranial abnormality is identified.[facility]
== END 2021-05-28 01:52 ==
LOC: ER 21:44
DX: A41.9 Sepsis, unspecified organism (principal); R06.03 Acute respiratory distress; I46.9 Cardiac arrest, cause unspecified
CPT/HCPCS: 85025; 80048; 36415; 85610; 80076; 83605; 84145; 31500; 92950; 99285; J0330; J0171; J7030